=== PATIENT | male | born 1990 | race Caucasian/White ===

== ENCOUNTER 2017-10-21 07:10 | Emergency (ER) | payer OTHER ==
[~2017-10-21] VITALS: Ht 175.3 cm; Wt 72.6 kg
[2017-10-21 07:36] VITALS: BP 131/86
--- NOTE | 2017-10-21 07:39 | Emergency Room Report ---
History of Present Illness General Chief Complaint: Palpitations Source: Patient Present Illness HPI 26-year-old male with a history of ADHD and alopecia, no surgical history, reports that he's been having palpitations since last night. He reports that he had a near syncopal episode in the recent past, and so for the past 3 days has been wearing a Holter monitor, he actually has to turn that monitored in today to Dr. Ras Fishman. However since he had symptoms all last night, he decided to come in today to the ER. He reports last night he felt both of his arms were going numb and his feet were tingling bilaterally, he did not syncopized, no refill near syncope again. He never had any pain complaints such as chest pain, back pain abdominal pain neck pain or any pain at all. He denies hemoptysis, recent travel, leg swelling, leg pain, recent illness such as vomiting, diarrhea, fevers, chills. He reports that he used to take Adderall , but has stopped that for the past 2 weeks. He also reports that he takes Propecia, but no other medications or supplements. As a drug use or heavy drinking recently, that does report 2-3 cigarettes per day smoking habit. Allergies: Coded Allergies: No Known Allergies (Unverified , 10/21/17) Patient History Past Medical History: see triage record Reviewed Nursing Documentation: PMH: Agreed; PSxH: Agreed Nursing Documentation-PMH Past Medical History: No Stated History Review of Systems All Other Systems: negative except mentioned in HPI Physical Exam Vital Signs Date Time Temp Pulse Resp B/P (MAP) Pulse Ox O2 Delivery O2 Flow Rate FiO2 10/21/17 07:15 97.9 64 18 131/86 96 Room Air 97.9 Sp02 EP Interpretation: reviewed, normal General Appearance: no apparent distress, alert, non-toxic Head: normocephalic Eyes: bilateral eye normal inspection, bilateral eye PERRL, bilateral eye EOMI ENT: normal ENT inspection, hearing grossly normal, normal pharynx, no angioedema, normal voice, moist mucus membranes Neck: normal inspection, full range of motion, supple, thyroid normal, supple/ symm/no masses Respiratory: chest non-tender, lungs clear, normal breath sounds, chest symmetrical, palpation of chest normal Cardiovascular #1: normal peripheral pulses, regular rate, rhythm Cardiovascular #2: 2+ radial (R), 2+ radial (L), 2+ dorsalis pedis (R), 2+ dorsalis pedis (L) Gastrointestinal: normal inspection, non tender, soft, no mass, no guarding, no rebound Rectal: deferred Genitourinary: normal inspection, no CVA tenderness Musculoskeletal: back normal, gait/station normal, normal range of motion, non- tender, no calf tenderness, Narciso's Sign negative Neurologic: alert, responsive, operations supervisor III-XII nml as tested, motor strength/tone normal, sensory intact, speech normal Psychiatric: judgement/insight normal, memory normal, mood/affect normal Skin: normal color, no rash, warm/dry, normal turgor Lymphatic: no adenopathy Medical Decision Making Diagnostic Impression: Primary Impression: Palpitations ER Course I do not suspect any severe illness, patient is actually having palpitation sensation with his EKG was performed, and it had normal sinus rhythm rate of 67 , and he has been on the monitor here with no events, heart rate in the 50s, which he reports is his normal resting heart rate. His labs, including electrolytes, hgb, TSH, are all wnl. He has an appointment with cardiology already, I'll discharge and have him follow up, his signs and symptoms are not consistent with aortic dissection or pulmonary embolism. His mediastinal silhouette in wnl (<8cm), his B/L UE BP were measured as below, and there is no wide discrepancy (SBP >20 difference), no murmur of aortic regurgitation or any murmur for that matter. He denied recent travel or DVT/PE symptomatology and lacks any risk factors. Nor does he seem that he is having acute coronary syndrome type pathology, I do not suspect of spontaneous pneumothorax or cardiac tamponade on or any other serious etiologies based on the CXR and other ancillary studies. I have attempted to contact the [employer] device company and the security system sales consultant's office to attempt to get his event monitor interrogated in case patient went into any malignant arrhythmias last night, but have not heard back. Will dc and have patient f/u with his security system sales consultant as I deem him to be very low-risk for adverse outcome given all the reassuring work-up and the excellent close follow-up already in motion. B/L BP was done: LUE BP: 126/72 RUE BP: 117/67 EKG Diagnostic Results EKG Time: 07:21 EP Interpretation: No ST or T segment changes, no T-wave inversions, normal QTC of 426 ms, no Rate: normal Rhythm: NSR ST Segments: no acute changes Rhythm Strip Diag. Results Rhythm Strip Time: 07:37 EP Interpretation: yes Rate: 56 Rhythm: NSR, no PVC's, no ectopy Chest X-Ray Diagnostic Results Chest X-Ray Diagnostic Results : Chest X-Ray Ordered: Yes # of Views/Limited/Complete: 1 View Indication: Other - Palpitations EP Interpretation: Yes Interpretation: no consolidation, no effusion, no pneumothorax, no acute cardiopulmonary disease Impression: No acute disease Electronically Signed by: Josiah Casey MD Last Vital Signs Date Time Temp Pulse Resp B/P (MAP) Pulse Ox O2 Delivery O2 Flow Rate FiO2 10/21/17 07:15 97.9 64 18 131/86 96 Room Air 97.9 Disposition: HOME, SELF-CARE JOSIAH CASEY M.D Oct 21, 2017 07:39
[2017-10-21 08:01] LABS: BASOPHILS % (AUTO) 1.1 % (0.0-2.0); EOSINOPHILS % (AUTO) 0.7 % (0.0-3.0); HEMOGLOBIN 15.9 G/DL (14.2-18.0); LYMPHOCYTES % (AUTO) 27.6 % (20.0-45.0); MEAN CORPUSCULAR VOLUME 91 FL (80-99); MONOCYTES % (AUTO) 11.1 % (1.0-10.0); NEUTROPHILS % (AUTO) 59.5 % (45.0-75.0); PLATELET COUNT 257 K/UL (150-450); RED BLOOD COUNT 4.94 M/UL (4.70-6.10); RED CELL DISTRIBUTION WIDTH 10.6 % (11.6-14.8); WHITE BLOOD COUNT 6.7 K/UL (4.8-10.8)
[2017-10-21 08:10] LABS: ANION GAP 8 mmol/L (5-15); BLOOD UREA NITROGEN 10 mg/dL (7-18); CALCIUM 9.1 MG/DL (8.5-10.1); CARBON DIOXIDE 27 MMOL/L (21-32); CHLORIDE 105 MMOL/L (98-107); CREATININE 0.9 MG/DL (0.55-1.30); POTASSIUM 3.6 MMOL/L (3.5-5.1); SODIUM 140 MMOL/L (136-145)
[2017-10-21 08:39] VITALS: BP 131/86
--- NOTE | 2017-10-21 09:58 | Diagnostic Imaging Report ---
Indication: Pain Technique: One view of the chest Comparison: none Findings: Lungs and pleural spaces are clear. Heart size is normal Impression: No acute process
--- NOTE | 2017-10-21 12:13 | Cardiology Report ---
APPROVED REPORT EKG Measurement Heart [id number] Normal sinus rhythm with sinus arrhythmia Normal ECG
== END 2017-10-21 08:42 | disposition home or self-care (01) ==
LOC: EMR 08:10
DX: R00.2 Palpitations (principal)
CPT/HCPCS: 36415; 71045; 80048; 83735; 84443; 85025; 93005; 99284

== ENCOUNTER 2017-10-30 13:44 | Emergency (ER) | payer OTHER ==
[~2017-10-30] VITALS: Ht 175.3 cm; Wt 72.6 kg
[2017-10-30 13:48] VITALS: BP 124/84
[2017-10-30] MEDS ORDERED: PROPECIA1 MG PO (13:52)
[2017-10-30 13:59] VITALS: BP 124/84
--- NOTE | 2017-10-30 13:59 | Emergency Room Report ---
History of Present Illness General Chief Complaint: General Complaint Source: Patient Present Illness Allergies: Coded Allergies: No Known Allergies (Unverified , 10/21/17) Nursing Documentation-[facility] Past Medical History: No History, Except For Physical Exam Vital Signs Date Time Temp Pulse Resp B/P (MAP) Pulse Ox O2 Delivery O2 Flow Rate FiO2 10/30/17 13:48 98.0 94 16 124/84 96 Room Air 98.1 Medical Decision Making ER Course patient left prior to being seen Last Vital Signs Date Time Temp Pulse Resp B/P (MAP) Pulse Ox O2 Delivery O2 Flow Rate FiO2 10/30/17 13:48 98.0 94 16 124/84 96 Room Air 98.1 Disposition: LEFT W/OUT BEING SEEN Condition: Unknown Basia Martinez DO Oct 30, 2017 13:59
== END 2017-10-30 14:23 | disposition left against medical advice (07) ==
LOC: EMR 13:54
DX: F41.0 Panic disorder [episodic paroxysmal anxiety] (principal); Z53.21 Procedure and treatment not carried out due to patient leaving prior to being seen by health care provider
CPT/HCPCS: 99281